=== PATIENT | male | born 1990 | race Caucasian/White ===

== ENCOUNTER 2022-03-14 19:21 | Emergency (ER) | payer OTHER ==
[2022-03-14 19:59] LABS: Hemoglobin 16.7 g/dL (14.0-18.0); Mean Corpuscular HGB CONC 34.3 g/dL (32.0-36.0); Mean Corpuscular Hemoglobin 33.5 pg (27.0-31.0); Mean Corpuscular Volume 97.7 fL (78.0-98.0); RBC Distribution Width 11.8 % (11.5-14.5); Red Blood Cell (RBC) Count 4.98 mill/uL (4.70-6.10); White Blood Cell (WBC) Count 7.5 thou/uL (4.8-10.8)
[2022-03-14 20:00] LABS: #Basophils 0.1 thou/uL (0.0-0.2); #Eosinphils 0.5 thou/uL (0.0-0.7); #Lymphocytes 1.8 thou/uL (1.20-3.40); #Monocytes 0.7 thou/uL (0.11-0.59); #Neutrophils 4.4 thou/uL (1.40-6.50); %Basophils 0.9 % (0.0-1.0); %Eosinophils 6.3 % (0.0-10.0); %Lymphocytes 24.6 % (21.0-51.0); %Monocytes 9.5 % (0.0-10.0); %Neutrophils 58.7 % (42.0-75.0)
[2022-03-14 20:11] LABS: MDiff Complete? YES; Platelet Clumps SLIGHT; Platelet Morphology Comment PLT clumps seen-ADEQ; RBC Morphology Normal
[2022-03-14 20:21] LABS: Acetaminophen Less than 10.0 mcg/mL (10.0-30.0); Alcohol Less than 10 mg/dL (Less than 10); Salicylate Less than 8.0 mg/dL (15.0-30.0)
[2022-03-14 21:11] LABS: Bilirubin Negative (Negative); Blood, Urine Negative (Negative); Clarity Turbid (Clear); Glucose, Urine (Dipstick) Normal (Negative); Ketone, Urine Negative (Negative); Leukocyte Negative Leu/uL (Negative); Nitrite Negative (Negative); Protein, Urine (Dipstick) 20 mg/dL (Neg-Trace); Specific Gravity, Urine 1.022 (1.002-1.036); Urobilinogen Normal mg/dL (Less than 2); pH, Urine 6.5 (5.0-9.0)
[2022-03-14 21:19] LABS: Amphetamine Detected (NotDetected); Barbiturates Screen Not Detected (NotDetected); Benzodiazepine Screen Not Detected (NotDetected); Cocaine Metabolite Screen Detected (NotDetected); Methadone Not Detected (NotDetected); Methamphetamine Not Detected (NotDetected); Opiate Screen Not Detected (NotDetected); Oxycodone Screen Not Detected (NotDetected); Phencyclidine (PCP) Not Detected (NotDetected); THC/Cannabinoid Screen Detected (NotDetected); Tricyclic Screen Not Detected (NotDetected)
[2022-03-14 21:43] LABS: Albumin 4.3 g/dL (3.5-5.0)
[2022-03-14 21:44] LABS: Chloride 102 mmol/L (98-107); Potassium 3.9 mmol/L (3.5-5.1); Sodium 137 mmol/L (136-145)
[2022-03-14 21:45] LABS: Calcium 9.1 mg/dL (7.8-10.44)
[2022-03-14 21:46] LABS: Globulin 2.6 g/dL (2.4-3.5); Glucose 98 mg/dL (70-105); Protein, Total 6.9 g/dL (6.0-8.3)
[2022-03-14 21:47] LABS: Anion Gap 12 mmol/L (10-20); Carbon Dioxide 27 mmol/L (22-29)
[2022-03-14 21:48] LABS: Alkaline Phosphatase 64 U/L (40-110); Bilirubin, Total 0.5 mg/dL (0.2-1.2)
[2022-03-14 21:49] LABS: Calc. Creatinine Clearance 0 mL/min (70-130)
[2022-03-14 21:50] LABS: BUN (Urea Nitrogen) 12 mg/dL (8.9-20.6)
[2022-03-14 21:51] LABS: AST (SGOT) 36 U/L (5-34)
[2022-03-14 21:52] LABS: ALT (SGPT) 26 U/L (8-55)
[2022-03-14] MEDS ORDERED: Ketorolac Tromethamine 30 MG/ML VIAL ONE (22:05)
== END 2022-03-14 23:00 | disposition home or self-care (01) ==
LOC: ERS 19:21
DX: R56.9 Unspecified convulsions (principal); M54.50 Low back pain, unspecified; F14.90 Cocaine use, unspecified, uncomplicated; F12.90 Cannabis use, unspecified, uncomplicated; Z79.899 Other long term (current) drug therapy; G43.909 Migraine, unspecified, not intractable, without status migrainosus
CPT/HCPCS: 36415; 70450; 72100; 80053; 80306; 80307; 81003; 84146; 85025; 93005; 96374; G0306; J1885